=== PATIENT | male | born 1975 | race Caucasian/White ===

== ENCOUNTER 2017-08-15 10:54 | Emergency (ER) | payer SELFPAY ==
[2017-08-15 10:59] VITALS: BP 170/108; PULSE 91; RESP 14; TEMP 98.5; O2SAT 99
[2017-08-15] MEDS ORDERED: BACT800T5 PO (11:18)
--- NOTE | 2017-08-15 11:20 | PD ---
HPI Chief Complaint: Bite or Sting Time Seen by Provider: 11:08 Travel History International Travel<30 days: No Contact w/Intl Traveler<30days: No Traveled to known affect area: No History of Present Illness HPI 41-year-old male presents to the emergency room for evaluation of abscess to his right hand that started 3-4 days ago. Patient states it has not significantly increased in size since the start. He believes he got bit by something. He tried to pop it and a small amount of pus came out. He denies streaking, fever, chills, nausea, vomiting. Patient is a daily drinker. Denies any allergies. Denies chronic medical conditions or daily medications. PFSH Past Medical History Diminished Hearing: No Kidney Stones: Yes Immunizations Current: Yes Tetanus Vaccination: < 5 Years Past Surgical History Eye Surgery: Yes (RIGHT EYE) Social History Alcohol Use: Yes (4 BEERS/TODAY) Tobacco Use: No Substance Use: Yes (SMOKES MARIJUANA) Allergies-Medications (Allergen,Severity, Reaction): Coded Allergies: No Known Allergies (Verified Adverse Reaction, Unknown, 08/15/17) Reported Meds & Prescriptions Reported Meds & Active Scripts Active Bactrim DS (Sulfamethoxazole-Trimethoprim) 800-160 Mg Tab 1 Tab PO BID Review of Systems Except as stated in HPI: all other systems reviewed are Neg Physical Exam Narrative GENERAL: Well-nourished, well-developed male in no acute distress. Afebrile. Ambulatory. SKIN: Focused skin assessment warm/dry. There is an indurated area in the right dorsal hand which measures about 3 cm in diameter. It is fluctuant but there is no pointing or drainage. There is a zone of inflammation around it but no lymphangitis. HEAD: Normocephalic. EYES: No scleral icterus. No injection or drainage. NECK: Supple, trachea midline. No JVD or lymphadenopathy. CARDIOVASCULAR: Regular rate and rhythm without murmurs, gallops, or rubs. RESPIRATORY: Breath sounds equal bilaterally. No accessory muscle use. PSYCHIATRIC: No delusional thought processes. No hallucinations. Data Data Last Documented VS Vital Signs Date Time Temp Pulse Resp B/P (MAP) Pulse Ox O2 Delivery O2 Flow Rate FiO2 08/15/17 10:59 98.5 91 14 170/108 (128) 99 Orders Orders Ibuprofen (Motrin) (08/15/17 11:30) [facility] Medical Decision Making Medical Screen Exam Complete: Yes Emergency Medical Condition: Yes Medical Record Reviewed: Yes Differential Diagnosis Abscess, cellulitis, folliculitis Narrative Course 41-year-old male presents to the emergency room for evaluation of abscess to his right hand that started 4 days ago. No systemic signs of infection. Abscess is small and contained to the dorsal aspect. It is drained, see procedure for details. Patient discharged with prescription for Bactrim. Told to follow up with PCP return for worsening symptoms. He understands and agrees to plan. Procedures Procedure Narrative INCISION AND DRAINAGE OF ABSCESS: The area was prepped and was sterilely draped. A subcutaneous wheal of percent lidocaine with epinephrine with a total number 2 mL was used to anesthetize the area properly. A number 11 scalpel was used to make a 1 cm incision across the area of the abscess. The abscess was drained, complex loculations were broken down, and irrigated with normal saline. Sterile dressing applied. Diagnosis Primary Impression: Abscess of right hand Referrals: Primary Care Physician Additional Instructions: Rest and drink plenty of fluids. Take Bactrim as directed, until gone. Follow up with a primary care physician. Return to emergency room for worsening symptoms, as discussed. Med/Other Pt SpecificInfo: Prescription(s) given Scripts Sulfamethoxazole-Trimethoprim (Bactrim DS) 800-160 Mg Tab 1 TAB PO BID for Infection, #20 TAB 0 Refills Prov: Raymond Rg MD 08/15/17 Disposition: 01 DISCHARGE HOME Condition: Stable Julia Man Aug 15, 2017 11:19
[2017-08-15] MEDS ORDERED: IBUPROFEN 600 MG TAB PO ONE (11:30)
== END 2017-08-15 11:47 | disposition home or self-care (01) ==
LOC: NEPK 10:54
DX: L02.511 Cutaneous abscess of right hand (principal); Z72.89 Other problems related to lifestyle
CPT/HCPCS: 10060

== ENCOUNTER 2018-01-04 02:45 | Emergency (ER) | payer OTHER ==
[~2018-01-04] VITALS: Ht 182.9 cm; Wt 70.0 kg
[~2018-01-04 02:45] MED LIST: BACT800T5 PO
[2018-01-04 03:00] VITALS: BP 157/107; PULSE 87; RESP 18; TEMP 97.2; O2SAT 98
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
[2018-01-04] MEDS ORDERED: LIDOCAINE 1%/EPINEPHrine 1:100,000 SOLN 50 ML VIAL INFIL ONE (03:15)
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
[2018-01-04] MEDS ORDERED: ACETAMINOPHEN 325 MG TAB PO ONE (04:45)
[2018-01-04 07:00] VITALS: BP 116/63; PULSE 94; RESP 16; O2SAT 98
== END 2018-01-04 10:17 | disposition home or self-care (01) ==
LOC: NEPD 02:45
DX: S01.81XA Laceration without foreign body of other part of head, initial encounter (principal); Y04.2XXA Assault by strike against or bumped into by another person, initial encounter; Y93.01 Activity, walking, marching and hiking
CPT/HCPCS: 12013; 70450; 70486; 72125

== ENCOUNTER 2018-01-12 12:47 | Emergency (ER) | payer SELFPAY ==
[~2018-01-12] VITALS: Ht 182.9 cm; Wt 68.0 kg
[2018-01-12 12:55] VITALS: BP 158/103; PULSE 115; RESP 16; TEMP 98.5
--- NOTE | 2018-01-12 13:13 | PD ---
HPI Chief Complaint: Wound/Suture/Staple Re-Check Time Seen by Provider: 13:03 Travel History International Travel<30 days: No Contact w/Intl Traveler<30days: No Traveled to known affect area: No History of Present Illness HPI 42-year-old male here for suture removal. He was seen here several days ago and had sutures placed to the left forehead and left cheek. He reports some itching and pain at the site of the wounds. No other complaints. PFSH Past Medical History Diabetes: No Diminished Hearing: No Kidney Stones: Yes Immunizations Current: Yes Tetanus Vaccination: < 5 Years Past Surgical History Eye Surgery: Yes (RIGHT EYE) Social History Alcohol Use: Yes (DAILY) Tobacco Use: No Substance Use: Yes (SMOKES MARIJUANA) Allergies-Medications (Allergen,Severity, Reaction): Coded Allergies: No Known Allergies (Verified Adverse Reaction, Unknown, 01/04/18) Reported Meds & Prescriptions Reported Meds & Active Scripts Active No Active Prescriptions or Reported Medications Review of Systems General / Constitutional: No: Fever, Chills Skin: Positive Itching, Positive Other (Positive for laceration, sutures) Physical Exam Narrative GENERAL: Well-nourished male no acute distress SKIN: Warm and dry. Large scab overlying the left forehead laceration. Sutures are not visible. The sutures are in place on the left cheek. There is no wound dehiscence or erythema or drainage. HEAD: Atraumatic. Normocephalic. EYES: Pupils equal and round. No scleral icterus. No injection or drainage. ENT: No nasal bleeding or discharge. Mucous membranes pink and moist. NECK: Trachea midline. No JVD. Data Data Last Documented VS Vital Signs Date Time Temp Pulse Resp B/P (MAP) Pulse Ox O2 Delivery O2 Flow Rate FiO2 01/12/18 12:55 98.5 115 16 158/103 (121) MDM Medical Decision Making Medical Screen Exam Complete: Yes Emergency Medical Condition: Yes Medical Record Reviewed: Yes Differential Diagnosis Suture removal, wound dehiscence, infected wound Narrative Course The sutures removed from the left cheek laceration without difficulty. The scab had to be removed in order to remove the sutures from the left forehead. There was slight wound dehiscence. Patient is stable for discharge. Diagnosis Primary Impression: Visit for suture removal Additional Impression: Wound dehiscence Additional Instructions: Wash the wounds daily with soap and water and apply antibiotic cream. Med/Other Pt SpecificInfo: Wound Care Scripts No Active Prescriptions or Reported Meds Disposition: 01 DISCHARGE HOME Condition: Stable Alfonzo Blake January 12, 2018 13:13
== END 2018-01-12 13:49 | disposition home or self-care (01) ==
LOC: NEPD 12:47
DX: T81.30XA Disruption of wound, unspecified, initial encounter (principal)
CPT/HCPCS: 99281